=== PATIENT | female | born 1955 | race Caucasian/White ===

== ENCOUNTER → 2016-12-28 | Outpatient (CLI) | payer OTHER ==
[~2016-12-28] MED LIST: ALBUTEROL17 GM INH; ALLERGY10 M2 PO; ASPIRIN PO; DYAZIDE 37.5/251 CAP PO; FLEXERIL PO; HYDROCODON-ACE1 EACH PO; IBUPROFEN PO; KLONOPIN0.5 MG PO; LEVAQUIN750 M1 PO; LISINOPRIL5 MG PO; MOBIC PO; NEURONTIN300 MG PO; OMEPRAZOLE20 M1 PO; PEN-VEE K PO; PROZAC PO; SYNTHROID PO; TRIAMTERENE-HC1 EAC1 PO; TYLENOL #3 PO; ULTRAM PO; VICODIN 5/500 T1 TAB PO; ZITHROMAX500 MG PO; ZOFRAN PO; ZOLOFT50 MG PO; [UNRECOGNIZED DRUG - SUPPLY]
--- NOTE | ~2016-12-28 | CR58 ---
[facility] A Service of [facility] RADIOLOGY TEXT RESULTS PATIENT: DANE FLORES LOCATION: [facility] : 51 UNIT #: [id number] AGE: [address]: Shahbaz Mills MD SEX: F ORDER DR: [id number] [address] [address] [id number] MR#: [id number] Acc #: [id number] NAME: DANE FLORES : 1955 SEX: F STUDY DATE/TIME: 12/28/2016 13:11 UNIT: [facility] ROOM: STUDY DESCRIPTION: CR Cervical Spine 2 or 3 Views Attending Physician: Shahbaz Mills M.D. Referring Physician: Shahbaz Mills M.D. Ordering Physician: Shahbaz Mills M.D. Primary Care Physician: Shahbaz Mills M.D. MEDICAL IMAGING REPORT This report is preliminary unless electronic signature is present. EXAM Cervical spine series HISTORY Neck pain intermittently over the past month. TECHNIQUE 3 views of the cervical spine were obtained. FINDINGS Alignment is satisfactory. There is mild disc space narrowing with small osteophytes seen at C4-5, C5-6 and C6-7. Posterior facets are intact. No acute bony abnormalities are seen. No prevertebral soft tissue swelling is noted. IMPRESSION Moderate degenerative disc disease C4-5, C5-6, and C6-7. No acute bony abnormalities are seen. Also noted in the soft tissues on both sides is soft tissue calcification likely representing calcified plaque at the carotid bifurcations. Dictated by... Genaro Walker M.D. THIS IS AN ELECTRONICALLY VERIFIED REPORT Genaro Walker M.D. at 12/28/2016 4:42 PM GIULIANO/rosetta TD: 12/28/2016 13:53 JOB #: [id number] [facility] A Service [facility] RADIOLOGY TEXT RESULTS PATIENT: DANE FLORES LOCATION: [facility] : [birth year] UNIT #: [id number] AGE: [address]: Shahbaz Mills MD SEX: F ORDER DR: MEDICAL IMAGING REPORT Page 1 of 1
== END | disposition home or self-care (01) ==
LOC: SRAD 13:03
DX: M54.2 Cervicalgia (principal); M50.321 Other cervical disc degeneration at C4-C5 level; M50.322 Other cervical disc degeneration at C5-C6 level; M50.323 Other cervical disc degeneration at C6-C7 level
CPT/HCPCS: 72040